=== PATIENT | female | born 1990 | race Caucasian/White ===

== ENCOUNTER 2017-03-19 11:44 | Emergency (ER) | payer SELFPAY | END 2017-03-19 14:23 | disposition home or self-care (01) | LOC: D.ER 11:44 | DX: S51.812A Laceration without foreign body of left forearm, initial encounter (principal); W26.9XXA Contact with unspecified sharp object(s), initial encounter; Y93.89 Activity, other specified; Y92.029 Unspecified place in mobile home as the place of occurrence of the external cause ==

== ENCOUNTER 2017-04-02 08:05 | Emergency (ER) | payer SELFPAY | END 2017-04-02 09:39 | disposition home or self-care (01) | LOC: D.ER 08:05 | DX: S51.812D Laceration without foreign body of left forearm, subsequent encounter (principal); X58.XXXD Exposure to other specified factors, subsequent encounter; Y92.029 Unspecified place in mobile home as the place of occurrence of the external cause; Z48.02 Encounter for removal of sutures; F17.200 Nicotine dependence, unspecified, uncomplicated ==

== ENCOUNTER 2017-04-09 07:57 | Emergency (ER) | payer SELFPAY | END 2017-04-09 08:29 | disposition home or self-care (01) | LOC: D.ER 07:57 | DX: S51.812D Laceration without foreign body of left forearm, subsequent encounter (principal); X58.XXXD Exposure to other specified factors, subsequent encounter; Y92.029 Unspecified place in mobile home as the place of occurrence of the external cause ==

== ENCOUNTER 2017-10-03 08:55 | Emergency (ER) | payer MEDICAID ==
[2017-10-03 09:39] LABS: APPEARANCE CLEAR (CLEAR); BILIRUBIN NEGATIVE (NEGATIVE); COLOR YELLOW (YELLOW); GLUCOSE NEGATIVE (NEGATIVE); KETONE NEGATIVE (NEGATIVE); NITRITE NEGATIVE (NEGATIVE); PROTEIN NEGATIVE (NEGATIVE); UROBILINOGEN NORMAL (NORMAL)
== END 2017-10-03 11:59 | disposition home or self-care (01) ==
LOC: D.ER 08:55
PROVIDERS: Family Medicine
DX: M54.32 Sciatica, left side (principal); M54.5 Low back pain; S39.012A Strain of muscle, fascia and tendon of lower back, initial encounter; X58.XXXA Exposure to other specified factors, initial encounter; Y93.89 Activity, other specified; Y92.89 Other specified places as the place of occurrence of the external cause; M79.1 Myalgia